=== PATIENT | female | born 1985 | race African-American/Black ===

== ENCOUNTER 2018-10-01 19:27 | Emergency (ER) | payer SELFPAY ==
[2018-10-01 19:29] VITALS: BP 138/72; PULSE 93; RESP 17; TEMP 36; O2SAT 99; BMI 51.3
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
[2018-10-01] MEDS: HYDROcodone Bitartrate/Apap 5/325 Tablet PO (22:40)
[2018-10-01 22:41] VITALS: BP 108/72; PULSE 69; RESP 16; O2SAT 98
[2018-10-01 22:42] VITALS: BP 108/72; PULSE 73; RESP 16; O2SAT 99
== END 2018-10-01 22:44 | disposition home or self-care (01) ==
PROVIDERS: Emergency Provider Emergency Medicine; Family Provider Family Medicine; PCP Family Medicine
DX: S16.1XXA Strain of muscle, fascia and tendon at neck level, initial encounter (principal); S40.011A Contusion of right shoulder, initial encounter; S63.601A Unspecified sprain of right thumb, initial encounter; V89.2XXA Person injured in unspecified motor-vehicle accident, traffic, initial encounter; Y93.9 Activity, unspecified; Y92.410 Unspecified street and highway as the place of occurrence of the external cause; Y99.9 Unspecified external cause status; Z72.0 Tobacco use
CPT/HCPCS: 72125; 73030; 73130; 99285

== ENCOUNTER 2018-10-24 15:11 | Emergency (ER) | payer SELFPAY ==
[2018-10-24 15:12] VITALS: BP 127/76; PULSE 71; RESP 17; TEMP 37; O2SAT 100; BMI 49.9
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
--- NOTE | 2018-10-24 16:28 | ED.DEP ---
ED Disposition - Plan for ED Patient: Instructions: ED Contusion Hand Referrals: Elkin Craig [NON-STAFF] - Sujit Bradley MD [STAFF PHYSICIAN] - Geoffrey Cox MD [NON-STAFF] -
== END 2018-10-24 16:57 | disposition home or self-care (01) ==
LOC: ED 16:05
PROVIDERS: Emergency Provider Emergency Medicine
DX: S60.011D Contusion of right thumb without damage to nail, subsequent encounter (principal); V89.2XXD Person injured in unspecified motor-vehicle accident, traffic, subsequent encounter; Z72.0 Tobacco use
CPT/HCPCS: 73130; 99283